=== PATIENT | female | born 1975 | race Caucasian/White ===

== ENCOUNTER → 2021-09-30 09:14 | Outpatient (BNVA) | payer OTHER, SELFPAY | PROVIDERS: Visit Provider Orthopaedic Surgery | DX: M54.2 Cervicalgia (principal) | CPT/HCPCS: 72040 ==

== ENCOUNTER → 2021-10-28 08:29 | Outpatient (BNVA) | payer OTHER, SELFPAY | PROVIDERS: Visit Provider Orthopaedic Surgery | DX: M53.82 Other specified dorsopathies, cervical region (principal) | CPT/HCPCS: 72050 ==

== ENCOUNTER 2021-12-22 10:21 | Outpatient (CLI) | payer OTHER, SELFPAY ==
--- NOTE | 2021-12-22 11:00 | MR_ITS ---
WS: [id number] MRI CERVICAL SPINE NONCONTRAST TECHNIQUE: Sagittal T1, T2 and STIR imaging. Axial T2, gradient, and fiesta imaging. CLINICAL INFORMATION: neck pain COMPARISON: Outside MRI September 07, 2021 FINDINGS: Outside MRI axial images somewhat degraded by motion. Straightening of the normal cervical lordosis. Cord signal is normal. No high-grade central canal marco antonio rowing. C2-C3: Normal. C3-C4: Normal. C4-C5: No significant disc bulging. Mild osteophytic ridging. Mild facet arthropathy. Mild LEFT bony foraminal narrowing. Spinal canal is patent. C5-C6: Mild disc bulging with a tiny shallow central protrusion. Small annular fissure. Osteophytic r idging with mild to moderate LEFT foraminal narrowing. RIGHT foramen is patent. Moderate facet arthro garry. C6-C7: Disc osteophyte complex with endplate ridging. Mild LEFT and no significant RIGHT foraminal na rrowing. Spinal canal is patent. C7-T1: Mild LEFT and no RIGHT foraminal narrowing. Spinal canal is patent. Visualized brain stem structures: Normal. Prevertebral soft tissues: Normal. MR/MR cervical spin wo con* [id number] IMPRESSION: 1. Straightening of the normal cervical lordosis. No high-grade central canal narrowing. Cord signal is normal. 2. Disc osteophytic ridging C5-C6 with mild to moderate LEFT bony foraminal na rrowing. Mild facet arthropathy. 3. Mild LEFT C6-C7 and LEFT C7-T1 bony foraminal narrowing. 4. Mild facet arthropathy worse at C5-C6. 5. Tiny shallow central protrusion C5-C6 with a small annular fissure and slig ht effacement of ventral thecal sac.
== END 2021-12-22 10:22 | disposition home or self-care (01) ==
PROVIDERS: PCP Registered Nurse; Visit Provider Orthopaedic Surgery
DX: M25.78 Osteophyte, vertebrae (principal); M47.812 Spondylosis without myelopathy or radiculopathy, cervical region; M50.222 Other cervical disc displacement at C5-C6 level
CPT/HCPCS: 72141

== ENCOUNTER 2022-07-24 10:18 | Emergency (ER) | payer OTHER, SELFPAY ==
--- NOTE | 2022-07-24 10:25 | XRR_ITS ---
PROCEDURE INFORMATION: Exam: XR Left Knee Exam date and time: 07/24/2022 10:38 AM Age: 46 years old Clinical indication: Pain and injury or trauma; Fall; Blunt trauma; Knee; Left; Additional info: Pain, injury TECHNIQUE: Imaging protocol: Radiologic exam of the left knee. Views: 3 views. COMPARISON: No relevant prior studies available. FINDINGS: Bones/joints: No acute fracture or malalignment. Joint spaces are maintained. Small joint effusion. Soft tissues: Normal. XR/XR knee LT 3V* [id number] IMPRESSION: No acute fracture or malalignment.
[2022-07-24 10:27] VITALS: BP 126/83; PULSE 83; RESP 14; TEMP 36.8; O2SAT 100; BMI 27.3
[2022-07-24 10:34] VITALS: BP 128/63; RESP 18; O2SAT 96
--- NOTE | 2022-07-24 10:38 | ED_ITS ---
HPI - Extremity Problem General: Chief complaint: Extremity Injury, Lower Stated complaint: Left knee injury Time Seen by Provider: 07/24/22 10:25 History of Present Illness: Patient is a 46-year-old female that presents to the emergency department with left knee pain. Patient reports that last night, while inebriated she fell landing on her left knee. Since that time she has had pain and difficulty ambulating/weightbearing. Patient states its very difficult to extend her knee. No open wounds present to the knee Edema is present as well as ecchymosis PMS intact Associated symptoms: Deny chest pain, fever(s) or rash Review of Systems General: Reports: 10 or more systems reviewed and unremarkable except in HPI and below Const: Denies: fever(s), chills, change in appetite, change in weight, fatigue or malaise Eyes: Denies: change in vision, eye discomfort, eye discharge or eye redness ENMT: Denies: throat pain, enlarged tonsils, odynophagia, hoarseness, ear or mastoid pain, ear discharge, change in hearing, tinnitus, nasal discharge, nasal congestion, post nasal drip or sinus pain Card: Denies: chest pain, palpitations, irregular heart rhythm, edema, dyspnea on exertion, orthopnea or leg pain with exertion Resp: Denies: dyspnea, productive cough, non-productive cough, wheezing, stridor or chest congestion GI: Denies: abdominal pain, nausea, vomiting, dysphagia, diarrhea, constipation, bloating, GI cramping or hematochezia : Denies: flank pain, difficulty voiding, dysuria, urinary frequency, urinary urgency, urinary hesitancy, oliguria or hematuria Musc: Reports: extremity pain, joint pain and joint swelling; Denies: neck pain, back pain, joint redness, joint warmth or muscle weakness Skin/Breast: Denies: rash, pruritus, erythema, photosensitivity or new lesions Neuro: Denies: headache(s), numbness in extremities, weakness in extremities, sensory changes, lack of coordination, difficulty walking, frequent falls, dizziness, confusion, Slurred speech present, difficulty communicating thoughts, seizure-like activity or involuntary movements Endo: Denies: polyuria, polydipsia or tired all the time Dawood/Lymph: Denies: easy bruising or easy bleeding PFSH ED PFSH: Social History Smoking and tobacco status: current every day smoker Alcohol intake: never Substance/Drug Use: never Physical Exam Const: COMMON NORMALS: no acute distress, patient oriented x3 and alert GENERAL APPEARANCE: cooperative ORIENTATION/CONSCIOUSNESS: Yes awake, Yes oriented to person, Yes oriented to place and Yes oriented to time HENMT: COMMON NORMALS: normocephalic and atraumatic HEAD & SCALP: normocephalic and atraumatic FACE & SINUS: normal facial exam MOUTH: Normal oral and palatal mucosa present THROAT: posterior oropharynx normal Eye: COMMON NORMALS: Equal, round and reactive pupils present, EOMs intact bilaterally, conjunctivae normal and no scleral icterus GENERAL EYE: appearance normal, both eyes and all related structures ALIGNMENT: Yes alignment normal PERIORBITAL: periorbital findings normal CONJUNCTIVA: Yes conjunctivae normal PUPIL: Yes Equal, round and reactive pupils present Neck/C-Spine: COMMON NORMALS: full ROM GENERAL: Yes normal visual inspection Lymph: LYMPHATIC: no lymphadenopathy noted Chest: COMMONS NORMALS: normal inspection of the chest Breast/axilla inspection: Yes no chest deformity, asymmetry, normal contours, no nodules, masses, tenderness Resp: COMMON NORMALS: normal respiratory effort, No retractions, No use of accessory muscles and clear to auscultation bilaterally EFFORT & INSPECTION: Yes able to speak in complete sentences and Yes symmetric chest movement AUSCULTATION: clear to auscultation bilaterally Cardio: COMMON NORMALS: regular rate, regular rhythm and Peripheral pulses 2+ throughout RATE: regular rate RHYTHM: regular rhythm PERIPHERAL PULSES: Peripheral pulses 2+ throughout GI: COMMON NORMALS: Normal to inspection, nondistended, normoactive bowel sounds present, Soft to palpation, non-tender and No hepatosplenomegaly present INSPECTION: Yes normal to inspection AUSCULTATION: Yes normoactive bowel sounds PALPATION: Yes Soft to palpation and Yes No hepatosplenomegaly present RECTAL EXAM: deferred Extremity: NARRATIVE EXTREMITY EXAM: Lower extremity: Ecchymosis edema present to anterior left knee Patient is flex to 90 degrees?this is position of comfort Tender to palpation Patient declines to extend knee stating it hurts too much. Is able to do a straight leg raise Patient is able to dorsiflex and plantarflex the foot and great toe Sensations intact light touch at medial, lateral, dorsal, plantar surface of the foot and first webspace DP pulses palpable and cap refills less than 3 seconds Attempts made to evaluate stability of the knee. I was able to flex and extend the knee 20?120 Negative varus and valgus stress Patient declined anterior drawer test GENERAL: Yes normal exam except as noted Neuro: COMMON NORMALS: patient oriented x3 SENSORIUM/ORIENTATION: Yes alert, Yes oriented to person, Yes oriented to place and Yes oriented to time CRANIAL NERVES: Yes CN normal except as noted Psych: COMMON NORMALS: mental status grossly normal, Normal thought process present, cooperative, activity/motor behavior normal, denies homicidal ideation and denies suicidal ideation THOUGHT PROCESS: Normal thought process present Skin: COMMON NORMALS: no rashes or lesions noted, no wounds and turgor normal GENERAL SKIN EXAM: no rashes or lesions noted and turgor normal Course Vital Signs: Vital signs: Vital Signs Temperature 98.3 F 07/24/22 10:27 Pulse Rate 83 07/24/22 10:27 Respiratory Rate 18 07/24/22 10:34 Blood Pressure 128/63 07/24/22 10:34 Pulse Oximetry 96 07/24/22 10:34 Oxygen Delivery Me thod Room Air 07/24/22 10:34 MDM - Extremity (Nontraumatic) Medical Decision Making Patient is a 46-year-old female that presents to the emergency department with left knee pain. Onset last night at 9 PM when she had a fall. She states that she landed directly on her knee. Patient underwent XR imaging of the left knee which revealed no fracture or dislocation. Patient participated minimally in the evaluation. Her pain was treated with Toradol and she states that that did help some We attempted to reexamine her knee and it was poorly tolerated. I gave patient the option of knee immobilizer and Jorge Luis wrap. She has elected a knee immobilizer. I have advised her to attempt range of motion flexion extension while at rest. Otherwise she needs to ice and elevate this. Patient is going to be provided crutches and crutch training. She states that she is going to take a couple days off from work. I am going to send a bottle caser consult for orthopedic evaluation. She is can be discharged home with ketorolac. I have advised her not to take additional NSAIDs while taking this. Patient is to return to the emergency department for new concerning or worsening symptoms all questions answered Discharge Plan Discharge Patient Disposition: Home Clinical Impression: Acute knee pain, Hemarthrosis involving knee joint Condition: Stable Prescriptions: New ketorolac 10 mg tablet 10 mg PO TID PRN (Reason: pain) 4 Days Qty: 20 0RF No Action acetaminophen [Tylenol] 325 mg tablet 325 mg PO QID PRN ibuprofen 200 mg tablet 200 mg PO Q6H PRN Discharge Orders: Discharge ED (Routine); Ordered 07/24/22 Ordered By: Manan Ríos Referrals: Ivonne Carter NP [Primary Care Provider] - Discharge Diet: Advance as tolerated Discharge Activity: Resume usual activity Patient Instructions: Hinged Knee Brace (ED), Hemarthrosis (ED), Pain Management Activity Restrictions/Additional Instructions: Please use the knee immobilizer and crutches as needed. You may come out and work on gentle range of motion I want you to ice it and elevate it. I have sent a referral for orthopedic surgery. You should hear from somebody Monday or Monday Please return to the emergency department for new concerning or worsening symptoms Coding Level of Care Code ED Licensed Veterinary Technician for [employer]
[2022-07-24] MEDS: ketorolac 60 mg/2 mL INJ IM (10:43)
--- NOTE | 2022-07-24 10:46 | PC.NURSE ---
pt was given an biobag with ice in it for icepack. icepack was placed over clothing on knee.
--- NOTE | 2022-07-25 08:36 | DCPLANNER ---
Addendum entered by Monse Garcia 07/28/22 08:42: Patient had a follow up appointment scheduled with ortho - patient did attend appointment. Addendum entered by Monse Garcia 07/26/22 16:01: Patient has a follow up appointment scheduled for Monday, July 27, 2022 at 2:45 with Venkatesh Pham at ortho. Original Note: transitions manager had message to schedule a follow up appointment for patient with ortho. transitions manager sent patients information to the front office staff at ortho. Patients information will be printed and reviewed. Clinic will call patient with appointment information.
== END 2022-07-24 12:45 | disposition home or self-care (01) ==
PROVIDERS: Emergency Provider Nurse Practitioner; PCP Nurse Practitioner Family
DX: M25.062 Hemarthrosis, left knee (principal); F17.210 Nicotine dependence, cigarettes, uncomplicated
CPT/HCPCS: 29530; 73562; 96372; 99284; E0114; J1885